=== PATIENT | male | born 1995 | race Caucasian/White ===

== ENCOUNTER 2020-10-18 07:14 | Emergency (ER) | payer SELFPAY ==
--- NOTE | 2020-10-18 07:16 | EDM.PDOC ---
ED HPI GENERAL MEDICAL PROBLEM - General Stated Complaint: CHEST PAIN Time Seen by Provider: 10/18/20 07:14 Source of Information: Reports: Patient History Limitations: Reports: No Limitations - History of Present Illness INITIAL COMMENTS - FREE TEXT/NARRATIVE: 25-year-old male presents for chest pain. Patient first noted the pain last night. Does admit to using cocaine yesterday. States he is not a typical cocaine user but does drink alcohol routinely. This morning he noticed that his left chest appeared "bigger than the right side" and associated with pain worse with deep inspiration in the lateral inferior aspect of his left chest. Associated with mild shortness of breath. The chest is tender to palpation per patient. Can feel his heart beating heavy but denies rapid heart rate. No k nown cardiac conditions. Currently feeling better but can still feel the pain. Pain had radiated down left arm and left leg. - Related Data Allergies Allergy/AdvReac Type Severity Reaction Status Date / Time No Known Allergies Allergy Verified 10/18/20 07:27 Home Meds: Home Meds . [No Known Home Meds] 10/18/20 [History] ED ROS GENERAL - Review of Systems Review Of Systems: Comprehensive ROS is negative, except as noted in HPI. ED EXAM, GENERAL - Physical Exam Exam: See Below Exam Limited By: No Limitations General Appearance: Alert, WD/WN, No Apparent Distress Ears: Normal External Exam Throat/Mouth: Normal Voice, No Airway Compromise Head: Atraumatic, Normocephalic Neck: Normal Inspection Respiratory/Chest: No Respiratory Distress, Lungs Clear, Normal Breath Sounds, No Accessory Muscle Use Cardiovascular: Normal Peripheral Pulses, Regular Rate, Rhythm, No Edema Extremities: Normal Inspection Neurological: Alert, Normal Gait Psychiatric: Normal Affect, Normal Mood Skin Exam: Warm, Dry, Intact, Normal Color #1 Interpretation EKG Date: 10/18/20 Time: 07:12 Rhythm: NSR Rate (Beats/Min): 92 [facility]: Normal P-Wave: Present QRS: Normal ST-T: Normal QT: Normal SC/PQ Interval: 135 Comparison: NA - No Prior EKG EKG Interpretation Comments: normal EKG without ischemic changes identified, normal axis/intervals Course - Vital Signs Last Recorded V/S: Last Vital Signs Temp 97.6 F 10/18/20 07:25 Pulse 99 10/18/20 07:25 Resp 16 10/18/20 07:25 BP 149/84 H 10/18/20 07:25 Pulse Ox 100 10/18/20 07:25 - Orders/Labs/Meds Orders: Active Orders 24 hr Category Date Time Status EKG Documentation Completion [RC] STAT Care 10/18/20 07:15 Active Chest 1V Frontal [CR] Stat Exams 10/18/20 07:15 Taken Sodium Chloride 0.9% [Normal Saline] 1,000 ml Med 10/18/20 07:27 Active IV .Bolus Sodium Chloride 0.9% [Saline Flush] Med 10/18/20 07:27 Active 10 ml FLUSH ASDIRECTED PRN Sodium Chloride 0.9% [Saline Flush] Med 10/18/20 07:27 Active 2.5 ml FLUSH ASDIRECTED PRN Saline Lock Insert [OM.PC] Stat Oth 10/18/20 07:27 Ordered Medication Orders Sodium Chloride (Normal Saline) 1,000 mls @ 999 mls/hr IV .Bolus ONE Stop: 10/18/20 08:27 Last Admin: 10/18/20 07:37 Dose: 999 mls/hr Documented by: JANI Sodium Chloride (Saline Flush) 10 ml FLUSH ASDIRECTED PRN PRN Reason: Keep Vein Open Last Admin: 10/18/20 07:38 Dose: 10 ml Documented by: JANI Sodium Chloride (Saline Flush) 2.5 ml FLUSH ASDIRECTED PRN PRN Reason: Keep Vein Open Last Admin: 10/18/20 07:38 Dose: 2.5 ml Documented by: JANI Labs: Laboratory Tests 10/18/20 10/18/20 10/18/20 Range/Units 07:22 07:22 07:22 WBC 8.36 (4.0-11.0) K/uL RBC 5.49 (4.50-5.90) M/uL Hgb 17.0 (13.0-17.0) g/dL Hct 48.1 (38.0-50.0) % MCV 87.6 (80.0-98.0) fL MCH 31.0 (27.0-32.0) pg MCHC 35.3 (31.0-37.0) g/dL RDW Std Deviation 40.0 (28.0-62.0) fl RDW Coeff of Susana 13 (11.0-15.0) % Plt Count 308 (150-400) K/uL MPV 10.40 (7.40-12.00) fL Neut % (Auto) 59.7 (48.0-80.0) % Lymph % (Auto) 28.7 (16.0-40.0) % Baldwin % (Auto) 10.6 (0.0-15.0) % Eos % (Auto) 0.6 (0.0-7.0) % Baso % (Auto) 0.4 (0.0-1.5) % Neut # (Auto) 5.0 (1.4-5.7) K/uL Lymph # (Auto) 2.4 (0.6-2.4) K/uL Baldwin # (Auto) 0.9 H (0.0-0.8) K/uL Eos # (Auto) 0.1 (0.0-0.7) K/uL Baso # (Auto) 0.0 (0.0-0.1) K/uL Nucleated RBC % 0.0 /100WBC Nucleated RBCs # 0 K/uL D-Dimer, Quantitative < 0.19 (0.0-0.50) mg/L FEU Sodium 134 L (136-148) mmol/L Potassium 3.3 L (3.5-5.1) mmol/L Chloride 97 L (98-107) mmol/L Carbon Dioxide 23.3 (21.0-32.0) mmol/L BUN 20 H (7.0-18.0) mg/dL Creatinine 1.3 (0.8-1.3) mg/dL Est Cr Clr Drug Dosing 93.32 mL/min Estimated GFR (MDRD) > 60.0 ml/min Glucose 182 H (74-106) mg/dL Calcium 9.6 (8.5-10.1) mg/dL Total Bilirubin 0.7 (0.2-1.0) mg/dL AST 16 (15-37) IU/L ALT 30 (14-63) IU/L Alkaline Phosphatase 89 (46-116) U/L Troponin I < 0.050 (0.000-0.056) ng/mL Total Protein 8.2 (6.4-8.2) g/dL Albumin 4.2 (3.4-5.0) g/dL Globulin 4.0 (2.6-4.0) g/dL Albumin/Globulin Ratio 1.0 (0.9-1.6) Lipase 84 (73-393) U/L Meds: Medications Generic Name Dose Route Start Last Admin Trade Name Freq PRN Reason Stop Dose Admin Sodium Chloride 1,000 mls @ 999 mls/hr 10/18/20 07:27 10/18/20 07:37 Normal Saline IV 10/18/20 08:27 999 mls/hr .Bolus ONE Administration Sodium Chloride 10 ml 10/18/20 07:27 10/18/20 07:38 Saline Flush FLUSH 10 ml ASDIRECTED PRN Administration Keep Vein Open Sodium Chloride 2.5 ml 10/18/20 07:27 10/18/20 07:38 Saline Flush FLUSH 2.5 ml ASDIRECTED PRN Administration Keep Vein Open Discontinued Medications Generic Name Dose Route Start Last Admin Trade Name Freq PRN Reason Stop Dose Admin Aspirin 324 mg 10/18/20 07:27 10/18/20 07:37 Aspirin PO 10/18/20 07:28 324 mg ONETIME ONE Administration Lorazepam 1 mg 10/18/20 07:27 10/18/20 07:37 Ativan IVPUSH 10/18/20 07:28 1 mg ONETIME ONE Administration - Re-Assessments/Exams Free Text/Narrative Re-Assessment/Exam: 10/18/20 08:03 Patient's labs are grossly unremarkable with mild hypokalemia, negative D-dimer, negative troponin. Patient symptoms are likely secondary to cocaine abuse. Will discharge patient home with primary care physician follow-up and return precautions as discussed. Departure - Departure Time of Disposition: 08:04 Disposition: Home, Self-Care 01 Condition: Good Clinical Impression: Chest pain Qualifiers: Chest pain type: unspecified Qualified Code(s): R07.9 - Chest pain, unspecified - Discharge Information Instructions: Nonspecific Chest Pain, Adult Additional Instructions: The following information is given to patients seen in the emergency department who are being discharged to home. This information is to outline your options for follow-up care. We provide all patients seen in our emergency department with a follow-up referral. The need for follow-up, as well as the timing and circumstances, are variable depending upon the specifics of your emergency department visit. If you don't have a primary care physician on staff, we will provide you with a referral. We always advise you to contact your personal physician following an emergency department visit to inform them of the circumstance of the visit and for follow-up with them and/or the need for any referrals to a consulting specialist. The emergency department will also refer you to a specialist when appropriate. This referral assures that you have the opportunity for follow-up care with a specialist. All of these measure are taken in an effort to provide you with optimal care, which includes your follow-up. Under all circumstances we always encourage you to contact your private physician who remains a resource for coordinating your care. When calling for follow-up care, please make the office aware that this follow-up is from your recent emergency room visit. If for any reason you are refused follow-up, please contact the [facility] Emergency Department at and asked to speak to the emergency department charge nurse. Please follow up with your primary care physician. If you do not have a primary care physician, see below: [facility] [address] [place] [id number] [facility] [address] [place] [id number] [facility] [address] [place] [id number] Sepsis Event Note (ED) - Focused Exam Vital Signs: Vital Signs Temp Pulse Resp BP Pulse Ox 10/18/20 07:25 97.6 F 99 16 149/84 H 100 - My Orders Last 24 Hours: My Active Orders 10/18/20 07:15 EKG Documentation Completion [RC] STAT Chest 1V Frontal [CR] Stat 10/18/20 07:27 Sodium Chloride 0.9% [Normal Saline] 1,000 ml IV .Bolus Sodium Chloride 0.9% [Saline Flush] 10 ml FLUSH ASDIRECTED PRN Sodium Chloride 0.9% [Saline Flush] 2.5 ml FLUSH ASDIRECTED PRN Saline Lock Insert [OM.PC] Stat - Assessment/Plan Last 24 Hours: My Active Orders 10/18/20 07:15 EKG Documentation Completion [RC] STAT Chest 1V Frontal [CR] Stat 10/18/20 07:27 Sodium Chloride 0.9% [Normal Saline] 1,000 ml IV .Bolus Sodium Chloride 0.9% [Saline Flush] 10 ml FLUSH ASDIRECTED PRN Sodium Chloride 0.9% [Saline Flush] 2.5 ml FLUSH ASDIRECTED PRN Saline Lock Insert [OM.PC] Stat
[2020-10-18] MEDS ORDERED: LORazepam 2 MG/ML SDV IVPUSH ONE (07:27)
[2020-10-18] MEDS ORDERED: Sodium Chloride 0.9% 10 ML Syringe FLUSH PRN (07:27)
[2020-10-18] MEDS ORDERED: Aspirin 81 MG Tab.Chew PO ONE (07:27)
[2020-10-18] MEDS ORDERED: Sodium Chloride 0.9% 1,000 ML IV ONE (07:27)
[2020-10-18] MEDS ORDERED: Sodium Chloride 0.9% 2.5 ML Syringe FLUSH PRN (07:27)
[2020-10-18 07:58] LABS: BLOOD UREA NITROGEN,BUN 20 mg/dL (7.0-18.0); CARBON DIOXIDE,CO2 23.3 mmol/L (21.0-32.0); CHLORIDE,CL 97 mmol/L (98-107); GLUCOSE RANDOM 182 mg/dL (74-106); LIPASE 84 U/L (73-393); POTASSIUM,K 3.3 mmol/L (3.5-5.1); SODIUM,NA 134 mmol/L (136-148)
--- NOTE | 2020-10-18 08:12 | CR ---
INDICATION: Chest pain and heaviness. TECHNIQUE: Chest 1 view COMPARISON: None FINDINGS: Cardiovascular and mediastinum: Heart size and vasculature are normal in caliber and appearance. Lungs and pleural spaces: Lungs are clear. No sign of infiltrate or mass. No sign of pleural effusion. No pneumothorax. Bones and soft tissues: No significant findings. IMPRESSION: No acute or significant findings. Dictated by Mj Barrios MD @ Oct 18 2020 8:10AM Signed by Dr. Mj Barrios @ Oct 18 2020 8:10AM
== END 2020-10-18 08:23 | disposition home or self-care (01) ==
LOC: MW.ED 07:14
DX: R07.9 Chest pain, unspecified (principal)
CPT/HCPCS: 36415; 71045; 80053; 83690; 84484; 85025; 85379; 93005; 96374; 99285; A9270; J2060; J7030; 93010; 99283

== ENCOUNTER 2021-12-24 02:36 | Emergency (ER) | payer SELFPAY | END 2021-12-24 03:01 | disposition home or self-care (01) | LOC: MW.ED 02:36 | DX: I10 Essential (primary) hypertension (principal) | CPT/HCPCS: 99282; 99283 ==